=== PATIENT | female | born 1990 | race Caucasian/White ===

== ENCOUNTER 2017-03-13 21:50 | Inpatient (IN) | payer BC ==
[2017-03-13 23:38] LABS: Glucose,Whole Blood 101 mg/dL (75-99)
[2017-03-13] MEDS ORDERED: CARBOPROST TROMETHAMINE 250 MCG/ML 1 ML AMP IM PRN (23:38)
[2017-03-13] MEDS ORDERED: METHYLERGONOVINE 0.2 MG/ML 1 ML AMP IM PRN (23:38)
[2017-03-13] MEDS ORDERED: TERBUTALINE 1 MG/ML VIAL SQ PRN (23:38)
[2017-03-13] MEDS ORDERED: LIDOCAINE 1% (PF) 10 MG/ML (30 ML SDV) SQ PRN (23:38)
[2017-03-13] MEDS ORDERED: OXYTOCIN 10 UNIT/ML 1 ML VIAL IM PRN (23:38)
[2017-03-13] MEDS ORDERED: LACTATED RINGERS 1,000 ML IV SCH (23:45)
[2017-03-13 23:59] LABS: Basophils % (A) 0 %; CH 28.7; CHCM 34.2; Eosinophils # (A) 0.1 k/uL (0-0.7); Eosinophils % (A) 1 %; HCT 35.6 % (34.0-46.0); HDW 3.22; HGB 12.3 gm/dL (11.4-16.0); Luc # (Auto) 0.18; Luc % (Auto) 2; Lymphocytes # (A) 1.6 k/uL (1.0-4.8); Lymphocytes % (A) 14 %; MCH 29.2 pg (25.0-35.0); MCHC 34.6 g/dL (31.0-37.0); MCV 84.3 fL (80.0-100.0); Mean Platelet Volume 8.4; Monocytes # (A) 0.6 k/uL (0-1.0); Monocytes % (A) 5 %; Neutrophils # (A) 8.9 k/uL (1.3-7.7); Neutrophils % (A) 78 %; RBC 4.22 m/uL (3.80-5.40); RDW 14.5 % (11.5-15.5); WBC 11.3 k/uL (3.8-10.6); WBC (Perox) 10.81
[2017-03-13] MEDS: LACTATED RINGERS 1,000 ML IV SCH (23:59)
[2017-03-14 00:08] VITALS: BMI 36.0
[2017-03-14] MEDS ORDERED: BUPIVACAINE (PF) 0.25% 30 ML VIAL ONE ×2 (01:10)
[2017-03-14] MEDS ORDERED: fentaNYL (PF) 50 MCG/ML 5 ML AMP ONE ×2 (01:10)
[2017-03-14] MEDS ORDERED: SODIUM CHLORIDE 0.9% 100 ML BAG ONE ×2 (01:10)
[2017-03-14] MEDS ORDERED: BUPIVACAINE (PF) 0.25% 25 ML, fentaNYL (PF) 200 MCG in SODIUM CHLORIDE 0.9% 71 ML EPIDURAL ONE (01:36)
[2017-03-14] MEDS: LACTATED RINGERS 1,000 ML IV SCH ×2 (01:42→20:04)
[2017-03-14] MEDS ORDERED: OXYTOCIN 20 UNITS/1000 ML NS 1,000 ML IV SCH (08:00)
[2017-03-14] MEDS ORDERED: Acetaminophen-Codeine 300-30mg TAB PO PRN (08:34)
[2017-03-14] MEDS ORDERED: HYDROCORTISONE 2.5% RECTAL CREAM 30 GM TUBE RECTAL PRN (08:34)
[2017-03-14] MEDS ORDERED: ZOLPIDEM 5 MG TAB PO PRN (08:34)
[2017-03-14] MEDS ORDERED: ACETAMINOPHEN TAB 325 MG TAB PO PRN (08:34)
[2017-03-14] MEDS ORDERED: SIMETHICONE 80 MG CHEWABLE PO PRN (08:34)
[2017-03-14] MEDS ORDERED: diphenhydrAMINE 25 MG CAP PO PRN (08:34)
[2017-03-14] MEDS ORDERED: LANOLIN CREAM 5 GM TUBE TOPICAL PRN (08:34)
[2017-03-14] MEDS ORDERED: WITCH HAZEL 1 EACH MED..PAD TOPICAL PRN (08:34)
[2017-03-14] MEDS ORDERED: diphenhydrAMINE 50 MG/ML 1 ML VIAL IVP PRN ×2 (08:34)
[2017-03-14] MEDS ORDERED: diphenhydrAMINE 50 MG CAP PO PRN (08:34)
[2017-03-14] MEDS ORDERED: BENZOCAINE/MENTHOL SPRAY 1 GM/SPRAY AEROSOL TOPICAL PRN (08:34)
[2017-03-14 08:37] VITALS: RESP 16
[2017-03-14] MEDS: IBUPROFEN 600 MG TAB PO PRN ×2 (08:45→23:48)
[2017-03-14] MEDS ORDERED: PRENATAL VIT-IRON-FOLIC ACID 1 EACH CAP PO SCH (09:00)
[2017-03-14] MEDS: LEVOTHYROXINE 125 MCG TAB PO SCH (09:35)
--- NOTE | 2017-03-14 10:27 | P.PROBDLV ---
Vaginal Delivery Note - . Vaginal Delivery Note: Chay is a 26-year-old 1 para 1 presented to labor and delivery last night with complaints of contractions she was admitted to labor and delivery. she requested epidural be placed and she progressed through labor. she had a spontaneous vaginal delivery of a viable female infant at 08:12. apgars 9, 9 at 1 and 5 mins respectively . There was a loose nuchal that was delivered through at the time of delivery marian dobbins was vigorous at delivery despite being meconium stained fluid. Apgars were 9 and 9 at one and 5 minutes respectively a first-degree vaginal laceration was repaired without difficulty with 3-0 Vicryl. 3-0 chromic was used to approximate a right labial laceration homostasis was noted. Prior to this the placenta was delivered spontaneously intact with a three-vessel cord. counts were correct 2 patient tolerated this procedure well. Blood loss was noted to be less than 500, chay did have an epidural during labor.
--- NOTE | 2017-03-14 10:27 | P.HPOB ---
History of Present Illness H&P Date: 03/14/17 Chief Complaint: IUP @ 40 weeks, Ative labor This is a 19-year-old 1 para 0 at 39 4/7 weeks, EDC of 03/17/2017, that presented to labor and delivery with complaints of contractions. Patient stated contractions started about 8 PM and became regular nature and painful therefore they came into the hospital. At this point she denied loss of fluid vaginal bleeding and did note good movement. on initial exam she was 2cm dilated then after an hour was 3 she was then admitted to Labor and delivery. FHTs were reactive on admission and she was sammie in a regular pattern. blood work showed a blood type of A+ Rubella immune RPR nonreactive Hepatitis B surface antigen negative HIV negative sliding she did fail her 1 hour diabetes screen but passed her 3 hour Past Medical History Past Medical History: Thyroid Disorder History of Any Multi-Drug Resistant Organisms: None Reported Past Surgical History: Tonsillectomy Additional Past Surgical History / Comment(s): wisdom teeth removed Past Anesthesia/Blood Transfusion Reactions: No Reported Reaction Past Psychological History: No Psychological Hx Reported Smoking Status: Never smoker Past Alcohol Use History: None Reported Past Drug Use History: None Reported - Past Family History Father Additional Family Medical History / Comment(s): valve replacement Mother Family Medical History: Thyroid Disorder Medications and Allergies Home Medications Medication Instructions Recorded Confirmed Type Levothyroxine Sodium [Synthroid] 125 mcg PO DAILY 04/13/16 03/13/17 History Qca-Jdka-Xjhlj Acid 1 cap PO DAILY 01/21/17 03/13/17 History [-U Capsule (formulary)] Allergies Allergy/AdvReac Type Severity Reaction Status Date / Time No Known Allergies Allergy Verified 03/13/17 21:58 Exam Osteopathic Statement: *. No significant issues noted on an osteopathic structural exam other than those noted in the History and Physical/Consult. - Vital Signs Vital signs: Vital Signs Temp Pulse Pulse Resp BP BP 03/13/17 23:38 97.1 F L 73 18 120/60 03/13/17 21:58 98.1 F 82 16 127/71 Intake and Output 03/13/17 03/14/17 03/14/17 22:59 06:59 14:59 Intake Total 1000 Balance 1000 Intake: IV 1000 Lactated Ringers 1,000 ml 1000 @ 999 mls/hr IV .Q1H1M [facility] Rx#:[id number] Other: # Voids 1 Weight 95.254 kg 95.254 kg Results Result Diagrams: 03/13/17 23:47 Abnormal Lab Results - Last 24 Hours (Table) 03/13/17 03/13/17 Range/Units 23:36 23:47 WBC 11.3 H (3.8-10.6) k/uL Neutrophils # 8.9 H (1.3-7.7) k/uL POC Glucose (mg/dL) 101 H (75-99) mg/dL
[2017-03-14 12:25] LABS: Hemoglobin A1C 5.5 % (4.2-6.1)
[2017-03-14] MEDS: SENNOSIDES-DOCUSATE SODIUM 1 EACH TAB PO SCH (20:04)
[2017-03-15 00:23] VITALS: TEMP 98.2
[2017-03-15 05:49] LABS: Basophils % (A) 0 %; CH 28.2; CHCM 33.3; Eosinophils # (A) 0.1 k/uL (0-0.7); Eosinophils % (A) 1 %; HCT 29.6 % (34.0-46.0); HDW 3.14; HGB 10.2 gm/dL (11.4-16.0); Luc # (Auto) 0.19; Luc % (Auto) 2; Lymphocytes # (A) 2.1 k/uL (1.0-4.8); Lymphocytes % (A) 21 %; MCH 29.3 pg (25.0-35.0); MCHC 34.5 g/dL (31.0-37.0); MCV 85.1 fL (80.0-100.0); Mean Platelet Volume 9.4; Monocytes # (A) 0.5 k/uL (0-1.0); Monocytes % (A) 5 %; Neutrophils % (A) 71 %; RBC 3.48 m/uL (3.80-5.40); RDW 14.6 % (11.5-15.5); WBC (Perox) 10.65
[2017-03-15] MEDS: SENNOSIDES-DOCUSATE SODIUM 1 EACH TAB PO SCH (08:13)
[2017-03-15] MEDS: LEVOTHYROXINE 125 MCG TAB PO SCH (08:14)
[2017-03-15 08:17] VITALS: BP 109/59; PULSE 90
--- NOTE | 2017-03-15 09:27 | P.PNOBGVD ---
Subjective - Subjective Principal diagnosis: day 1, Patient reports: Reports appetite normal, Reports voiding normally, Reports pain well controlled, Reports ambulating normally [place]: doing well Objective - Latest Vital Signs Latest vital signs: Vital Signs Temp Pulse Pulse Resp BP BP 03/15/17 08:00 98.2 F 90 16 109/59 03/15/17 00:00 98.2 F 71 16 108/78 03/14/17 20:00 98.4 F 75 16 125/71 03/14/17 16:00 98.0 F 62 16 102/62 03/14/17 12:00 98.2 F 72 16 113/54 03/14/17 10:20 97.3 F L 81 16 108/60 03/14/17 09:50 75 16 126/58 Intake and Output 03/14/17 03/15/17 03/15/17 22:59 06:59 14:59 Other: # Voids 1 2 1 - Exam Extremities: Present: normal Abdomen: Present: normal appearance Uterus: Present: firm - Labs Labs: Abnormal Lab Results - Last 24 Hours (Table) 03/15/17 Range/Units 05:39 RBC 3.48 L (3.80-5.40) m/uL Hgb 10.2 L (11.4-16.0) gm/dL Hct 29.6 L (34.0-46.0) % Assessment and Plan (1) Vaginal delivery Narrative/Plan: Georgette is a very pleasant 26-year-old status post normal spontaneous vaginal delivery. She is doing well. She wishes to be discharged home. She is ambulating and voiding without difficulty. She states her lochia is moderate. She is breast-feeding and supplementing with formula. We will discharge home today in stable condition Routine instructions will be given Perception for Motrin was given for pain control and discharge instructions are reviewed verbally with the patient's Current Visit: Yes Status: Acute Code(s): O80 - ENCOUNTER FOR FULL-TERM UNCOMPLICATED DELIVERY SNOMED Code(s): 736414489
--- NOTE | 2017-03-15 09:31 | P.DS ---
Providers Date of admission: 03/13/17 23:20 Expected date of discharge: 03/15/17 Attending physician: Freddy Shah Primary care physician: Freddy Shah - Discharge Diagnosis(es) (1) Vaginal delivery Georgette is a very pleasant 26-year-old that presents to labor and delivery on 721 with complaints of labor patient did well throughout labor eventually getting epidural and began pushing patient had a spontaneous vaginal delivery of a viable female infant, shilpi at 812 Apgars of 9 and 9 at one and 5 minutes respectively weight of 8 lbs. 0 oz. she did have a small first- degree vaginal laceration and a labial laceration that was repaired after the delivery. Current Visit: Yes Status: Acute Hospital Course: Hospital course was essentially uncomplicated she presented to labor and delivery in active labor only necessitating rupture of membranes at approximately 8 cm began pushing and had a spontaneous vaginal delivery of a viable female at 812. She her course is been uncomplicated and on day #1 she wishes to be discharged home. She states that she is feeling well a burning and voiding without difficulty. She is tolerating regular diet. She states her pain is controlled with oral Motrin. Patient Condition at Discharge: Good Plan - Discharge Summary New Discharge Prescriptions: No Action Levothyroxine Sodium [Synthroid] 125 mcg PO DAILY Utz-Qndx-Otigh Acid [-U Capsule (formulary)] 1 cap PO DAILY Discharge Medication List Levothyroxine Sodium [Synthroid] 125 mcg PO DAILY 04/13/16 [History] Pyo-Goat-Xfeol Acid [-U Capsule (formulary)] 1 cap PO DAILY [History]
== END 2017-03-15 12:15 | disposition home or self-care (01) | DRG 775 ==
LOC: FBPOP 21:50 → 4FBP 23:20
PROVIDERS: ADMIT Obstetrics & Gynecology Obstetrics; ATTEND Obstetrics & Gynecology
PROC: 10E0XZZ Delivery of Products of Conception, External Approach (ICD-10-PCS; principal; 2017-03-14)
PROC: 0HQ9XZZ Repair Perineum Skin, External Approach (ICD-10-PCS; 2017-03-14)
PROC: 00HU33Z Insertion of Infusion Device into Spinal Canal, Percutaneous Approach (ICD-10-PCS; 2017-03-14)
PROC: 3E0R3CZ (ICD-10-PCS; 2017-03-14)
DX: O99.284 Endocrine, nutritional and metabolic diseases complicating childbirth (principal); E07.9 Disorder of thyroid, unspecified; O69.81X0 Labor and delivery complicated by cord around neck, without compression, not applicable or unspecified; O77.0 Labor and delivery complicated by meconium in amniotic fluid; O70.0 First degree perineal laceration during delivery; Z37.0 Single live birth; Z3A.39 39 weeks gestation of pregnancy; Z79.899 Other long term (current) drug therapy
CPT/HCPCS: 59025; 83036; 85025; 88307; 99213

== ENCOUNTER 2019-12-25 10:16 | Inpatient (IN) | payer BC ==
[2019-12-25] MEDS ORDERED: CARBOPROST TROMETHAMINE 250 MCG/ML 1 ML AMP IM PRN (10:31)
[2019-12-25] MEDS ORDERED: METHYLERGONOVINE 0.2 MG/ML 1 ML AMP IM PRN (10:31)
[2019-12-25] MEDS ORDERED: OXYTOCIN 10 UNIT/ML 1 ML VIAL IM PRN (10:31)
[2019-12-25] MEDS ORDERED: TERBUTALINE 1 MG/ML VIAL SQ PRN (10:31)
[2019-12-25] MEDS ORDERED: LIDOCAINE 0.5% (PF) 5 MG/ML (50 ML SDV) SQ PRN (10:31)
[2019-12-25 10:40] LABS: Glucose,Whole Blood 93 mg/dL (75-99)
[2019-12-25] MEDS ORDERED: OXYTOCIN 30 UNITS/500 ML NS 30 UNIT in SALINE 1 500ML.BAG IV SCH (10:45)
[2019-12-25] MEDS: LACTATED RINGERS 1,000 ML IV SCH ×2 (10:48→11:40)
[2019-12-25] MEDS ORDERED: fentaNYL (PF) 50 MCG/ML 5 ML AMP ONE (10:57)
[2019-12-25] MEDS ORDERED: SODIUM CHLORIDE 0.9% 100 ML BAG ONE (10:57)
[2019-12-25] MEDS ORDERED: ROPIVACAINE 5MG/ML 20ML VIAL ONE (10:57)
[2019-12-25 11:03] LABS: Basophils % (A) 0 %; Eosinophils # (A) 0.1 k/uL (0-0.7); Eosinophils % (A) 1 %; HCT 35.7 % (34.0-46.0); HGB 11.8 gm/dL (11.4-16.0); Hypochromasia Slight; Lymphocytes # (A) 1.4 k/uL (1.0-4.8); Lymphocytes % (A) 15 %; MCH 26.4 pg (25.0-35.0); MCHC 33.1 g/dL (31.0-37.0); MCV 79.8 fL (80.0-100.0); Mean Platelet Volume 8.5; Monocytes # (A) 0.4 k/uL (0-1.0); Monocytes % (A) 5 %; Neutrophils # (A) 7.3 k/uL (1.3-7.7); Neutrophils % (A) 77 %; Platelet Count 268 k/uL (150-450); Poikilocytosis Slight; RBC 4.48 m/uL (3.80-5.40); RDW 14.4 % (11.5-15.5); WBC 9.4 k/uL (3.8-10.6)
--- NOTE | 2019-12-25 11:21 | P.HPOB ---
History of Present Illness H&P Date: 12/25/19 This is a 29-year-old white female 2 para 1001 EDC 01/06/2020 at 38-3/7 weeks' gestation. Patient presents with strong regular uterine contractions at home. Fetus is been active throughout the . Her history is significant for gestational diabetes, diet controlled, blood sugar 95 on admission. Family history significant for breast cancer, thyroid disorder, and heart valve defect. Social history patient is , her Dilan is present. She has never been a smoker and denies alcohol or drug use. Past medical history significant for hypothyroidism, and abnormal Pap smear in the remote past. Past surgical history wisdom teeth extracted, tonsillectomy. Current medications vitamins daily. ALLERGIES none known. Obstetric history is significant for blood type A+, rubella status immune. Nonreactive and chlamydia cultures, group B strep cultures, Pap smear, hepatitis B surface antigen, HIV testing all negative. VDRL testing nonreactive. One- hour Glucola 153, three-hour GTT consistent with gestational diabetes. On exam this is a pleasant white female who is 5 foot 4 inches, 215 pounds, vital signs are stable and she is afebrile. The general physical exam is within normal limits. Cervix is 9 cm dilated, 100% effaced, -1 station, vertex prese ntation. Artificial amniorrhexis reveals clear fluid. heart rate is consistent with reactive NST, baseline 140s. Uterine contractions occurring spontaneously every 2-3 minutes apart. Impression: 38-3/7 weeks intrauterine , active spontaneous labor. All signs reassuring. Plan: Patient is requesting epidural, anesthesia is here and epidural is being placed. Continue close maternal and surveillance. Anticipate normal spontaneous vaginal delivery. Review of Systems Constitutional: Reports as per HPI Past Medical History Past Medical History: Thyroid Disorder Additional Past Medical History / Comment(s): Gestational diabetes x2 History of Any Multi-Drug Resistant Organisms: None Reported Past Surgical History: Tonsillectomy Additional Past Surgical History / Comment(s): wisdom teeth removed Past Anesthesia/Blood Transfusion Reactions: No Reported Reaction Smoking Status: Never smoker - Past Family History Father Additional Family Medical History / Comment(s): valve replacement Mother Family Medical History: Thyroid Disorder Medications and Allergies Home Medications Medication Instructions Recorded Confirmed Type Levothyroxine Sodium [Synthroid] 125 mcg PO DAILY 04/13/16 12/25/19 History Tni-Lfxl-Avstn Acid 1 cap PO DAILY 01/21/17 12/25/19 History [-U Capsule (formulary)] Allergies Allergy/AdvReac Type Severity Reaction Status Date / Time No Known Allergies Allergy Verified 12/25/19 10:21 Exam Vital Signs Pulse Resp BP 12/25/19 10:26 72 18 124/60 12/25/19 10:25 72 18 124/60 Intake and Output 12/24/19 12/25/19 12/25/19 22:59 06:59 14:59 Other: Weight 95.254 kg See dictation under HPI please Results Result Diagrams: 12/25/19 10:45 Abnormal Lab Results - Last 24 Hours (Table) 12/25/19 Range/Units 10:45 MCV 79.8 L (80.0-100.0) fL Assessment and Plan Assessment: 38-3/7 weeks intrauterine , active spontaneous labor. Gestational diabetes, blood sugar 95. All signs reassuring. Plan: Epidural has been placed per patient's request. Continue close maternal and surveillance. Anticipate normal spontaneous vaginal delivery. Time with Patient: Less than 30
[2019-12-25] MEDS ORDERED: LANOLIN CREAM 5 GM TUBE TOPICAL PRN (12:12)
[2019-12-25] MEDS ORDERED: SIMETHICONE 80 MG CHEWABLE PO PRN (12:12)
[2019-12-25] MEDS ORDERED: ZOLPIDEM 5 MG TAB PO PRN (12:12)
[2019-12-25] MEDS ORDERED: ACETAMINOPHEN TAB 325 MG TAB PO PRN (12:12)
[2019-12-25] MEDS ORDERED: diphenhydrAMINE 50 MG/ML 1 ML VIAL IVP PRN ×2 (12:12)
[2019-12-25] MEDS ORDERED: WITCH HAZEL 1 EACH MED..PAD TOPICAL PRN (12:12)
[2019-12-25] MEDS ORDERED: diphenhydrAMINE 50 MG CAP PO PRN (12:12)
[2019-12-25] MEDS ORDERED: BENZOCAINE/MENTHOL SPRAY 1 GM/SPRAY AEROSOL TOPICAL PRN (12:12)
[2019-12-25] MEDS ORDERED: diphenhydrAMINE 25 MG CAP PO PRN (12:12)
[2019-12-25] MEDS ORDERED: HYDROCORTISONE 2.5% RECTAL CREAM 30 GM TUBE RECTAL PRN (12:12)
--- NOTE | 2019-12-25 12:12 | P.PROBDLV ---
Vaginal Delivery Note - . Vaginal Delivery Note: This is a 29-year-old white female 2 para 1001 EDC 01/06/2020 at 38-3/7 weeks' gestation. Patient presented with strong regular uterine contractions from home, in active spontaneous labor. is remarkable for gestational diabetes, admitting blood sugar 95. Group B strep cultures negative. Please see dictated history and physical for details. Artificial amniorrhexis revealed clear fluid. Epidural was requested and placed without difficulty. Patient progressed well through the first stage of labor and became completely dilated at 1146 hours. Perineal body was prepped and draped in usual sterile fashion. With excellent maternal expulsive efforts the head easily delivered occiput anterior and restituted accordingly. There was no nuchal cord noted. The left or anterior shoulder was gently delivered from underneath the pubic symphysis at which time the oropharynx, nasopharynx, and external nares were all bulb suctioned on the perineal body. Patient was officially delivered of a liveborn male infant at 1156 hours. Umbilical cord was doubly clamped and ligated, he was handed to waiting nurses for evaluation where scores of 9 and 9 at one and 5 minutes respectively were given. Placenta delivered spontaneously, it was inspected and noted to be intact with trivascular cord at 1201. Uterus is then massaged. Careful inspection of the cervix, vagina, perineum, periurethral, and perirectal areas reveals a very small midline first-degree laceration. This is repaired in the usual fashion using 3-0 Rapide with a single [id number]. Fundus is firm and in the midline, symmetric and 18 week size upon completion of delivery. All sponge needle and enhancement counts are correct. weighs 3840 g or 8 lbs. 8 oz. She is requesting circumcision for her infant son.
[2019-12-25] MEDS ORDERED: OXYTOCIN 20 UNITS/1000 ML NS 1,000 ML IV SCH (12:15)
[2019-12-25] MEDS: IBUPROFEN 600 MG TAB PO PRN ×2 (13:19→19:14)
[2019-12-25] MEDS: SENNOSIDES-DOCUSATE SODIUM 1 EACH TAB PO SCH (19:15)
[2019-12-25 23:19] VITALS: RESP 18
[2019-12-26] MEDS: IBUPROFEN 600 MG TAB PO PRN ×2 (01:26→07:47)
[2019-12-26] MEDS: SENNOSIDES-DOCUSATE SODIUM 1 EACH TAB PO SCH (07:47)
[2019-12-26 08:25] VITALS: BP 120/82; PULSE 71; TEMP 98.7
--- NOTE | 2019-12-26 08:56 | P.DS ---
Providers Date of admission: 12/25/19 10:29 Expected date of discharge: 12/26/19 Attending physician: Freddy Shah Primary care physician: Stated None - Discharge Diagnosis(es) (1) Vaginal delivery Current Visit: No Status: Acute Hospital Course: The patient is a 29-year-old 2 para 1001 admitted at 38-3/7 weeks by good dating parameters perches admitted in active labor with all signs reassuring. Her has been complicated by gestational diabetes which is been relatively well controlled with diet alone. testing has been yaneth ssuring throughout. On labor and delivery, she had an epidural catheter placed for analgesia and underwent artificial rupture of membranes for clear fluid. She progressed quickly to complete and then pushed to a normal spontaneous vaginal delivery of a viable 8 lbs. 8 oz. baby boy with Apgars of 9 at 1 minute and 9 at 5 minutes. Her course was unremarkable vital signs remaining stable and her temperature was afebrile throughout. She was deemed stable for discharge on day 1 was discharged home to follow-up in the office in 6 weeks' time routinely. Discharge instructions included calling for any significantly increased bleeding or foul-smelling lochia, significantly increased fever abdominal pain, perineal complaints, breast complaints, or anything else that concerned her. She was additionally instructed to have nothing in the vagina for at least 6 weeks time to include intercourse. She understood her instructions and agrees to follow up as noted above. Discharge medications included only rniw-xvj-duzqxfd analgesic pain medications as well as vitamins as she may opted to breast-feed. Maternal blood type is A+ and rubella status is immune. Procedures: #1. Epidural analgesia #2. Artificial rupture of membranes #3. Normal spontaneous vaginal delivery #4. Repair of perineal laceration Patient Condition at Discharge: Good Plan - Discharge Summary New Discharge Prescriptions: No Action Levothyroxine Sodium [Synthroid] 125 mcg PO DAILY Xda-Tjny-Hstud Acid [-U Capsule (formulary)] 1 cap PO DAILY Discharge Medication List Levothyroxine Sodium [Synthroid] 125 mcg PO DAILY 04/13/16 [History] Auu-Vvob-Vvgyw Acid [-U Capsule (formulary)] 1 cap PO DAILY 01/21/17 [History] Follow up Appointment(s)/Referral(s): Freddy Shah MD [STAFF PHYSICIAN] - 6 Weeks Discharge Disposition: HOME SELF-CARE
--- NOTE | 2019-12-28 07:56 | P.MSEPDOC ---
Presenting Problems - Arrival Data Date of Arrival on Unit: 12/25/19 Time of Arrival on Unit: 10:20 Mode of Transport: Wheelchair - Complaint OB-Reason for Admission/Chief Complaint: Possible Onset of Labor Medical History - Information : 2 Para: 1 Term: 1 : 0 Abortions: Spontaneous or Elective: 0 Number of Living Children: 1 - Gestational Age Gestational Age by SHONDA (wks/days): 38 Weeks and 2 Days - History Complications: GDM Review of Systems - Review of Systems Constitutional: No problems Breast: No problems ENT: No problems Cardiovascular: No problems Respiratory: No problems Gastrointestinal: No problems Genitourinary: No problems Musculoskeletal: No problems Neurological: No problems Skin: No problems Vital Signs - Temperature Temperature: 98.7 F Temperature Source: Oral - Pulse Right Brachial Pulse Rate: 71 Pulse Assessment Method: Pulse Oximetry - Respirations Respiratory Rate: 18 Oxygen Delivery Method: Room Air O2 Sat by Pulse Oximetry: 99 - Blood Pressure Right Arm Blood Pressure: 120/82 Blood Pressure Mean: 94 Blood Pressure Source: Automatic Cuff Medical Screen Scoring (Pre) - Cervical Exam Dilation: 4-7 cm = 2 Membranes: Intact - Uterine Contractions Frequency: > or = 36 weeks =2 Duration: > 40 seconds = 2 Intensity: N/A - Maternal Vital Signs Maternal Temperature: N/A Signs of Preeclampsia: N/A Maternal Respirations: N/A - Maternal Trauma Maternal Trauma: N/A - Assessment - Baby A Baseline FHR: 150 Heart Rate - NICHD Category: Category I (Normal) = 0 NST: Reactive Position: N/A - Total Score - Baby A Total Score - Baby A: 6 - Total Score - Baby B Total Score - Baby B: 6 - Total Score - Baby C Total Score - Baby C: 6 - Level of Risk - Baby A Level of Risk - Baby A: Medium (6-9) - Level of Risk - Baby B Level of Risk - Baby B: Medium (6-9) - Level of Risk - Baby C Level of Risk - Baby C: Medium (6-9) Physician Notification (Pre) - Physician Notified Physician Notified Date: 12/25/19 Physician Notified Time: 10:29 New Order Received: Yes - Notification Comment Comment: admit for labor Disposition - Disposition OB Disposition: Admit Transferred to:: suite 9 Discharge Date: 12/25/19 Discharge Time: 13:53 I agree with the RN Medical Screening Exam: Yes Risk & Benefit of care provided described in d/c instruction: Yes Diagnosis: LOUSE-BORNE TYPHUS
== END 2019-12-26 13:53 | disposition home or self-care (01) | DRG 807 ==
LOC: FBPOP 10:16 → 4FBP 10:29
PROVIDERS: ADMIT Obstetrics & Gynecology; ATTEND Obstetrics & Gynecology
PROC: 0HQ9XZZ Repair Perineum Skin, External Approach (ICD-10-PCS; principal; 2019-12-25)
PROC: 10E0XZZ Delivery of Products of Conception, External Approach (ICD-10-PCS; principal; 2019-12-25)
PROC: 3E0R3NZ Introduction of Analgesics, Hypnotics, Sedatives into Spinal Canal, Percutaneous Approach (ICD-10-PCS; principal; 2019-12-25)
PROC: 10907ZC Drainage of Amniotic Fluid, Therapeutic from Products of Conception, Via Natural or Artificial Opening (ICD-10-PCS; principal; 2019-12-25)
PROC: 00HU33Z Insertion of Infusion Device into Spinal Canal, Percutaneous Approach (ICD-10-PCS; principal; 2019-12-25)
DX: O24.429 Gestational diabetes mellitus in childbirth, unspecified control (principal); Z37.0 Single live birth; O70.0 First degree perineal laceration during delivery; O99.284 Endocrine, nutritional and metabolic diseases complicating childbirth; E03.9 Hypothyroidism, unspecified; Z3A.38 38 weeks gestation of pregnancy; Z79.890 Hormone replacement therapy; Z80.3 Family history of malignant neoplasm of breast
CPT/HCPCS: 59025; 85025; 86850; 86900; 86901; 99213